=== PATIENT | female | born 1960 | race Caucasian/White ===

== ENCOUNTER 2017-10-05 20:25 | Inpatient (IN) | payer OTHER ==
[~2017-10-05] VITALS: Ht 167.6 cm; Wt 85.6 kg
[2017-10-05] MEDS ORDERED: LISI-167 PO (20:54)
[2017-10-05] MEDS ORDERED: ASPIRIN 81 MG TABLET CHEW PO ONE (21:00)
[2017-10-05] MEDS ORDERED: SODIUM CHLORIDE FLUSH 10ML SYR IVF ONE (21:00)
[2017-10-05] MEDS ORDERED: NITROGLYCERIN SINGLE TAB 0.4 MG SL PRN (21:00)
[2017-10-05] MEDS ORDERED: NITROGLYCERIN SINGLE TAB 0.4 MG SL ONE (21:02)
[2017-10-05] MEDS ORDERED: ASPIRIN 81 MG TABLET CHEW ONE (21:02)
[2017-10-05 21:17] LABS: BASOPHILS # (AUTO) 0.03 x10^3/uL (0-0.1); BASOPHILS % (AUTO) 0 % (0-1); EOSINOPHILS # (AUTO) 0.17 x10^3/uL (0-0.4); EOSINOPHILS % (AUTO) 2 % (1-7); LYMPHOCYTES # (AUTO) 3.76 x10^3/uL (1-3.4); LYMPHOCYTES % (AUTO) 36 % (22-44); MD NO; MEAN CORPUSCULAR HEMOGLOBIN 31.9 pg (27.0-34.8); MEAN CORPUSCULAR VOLUME 93.8 fL (80-100); MEAN PLATELET VOLUME 8.7 fL (7.4-10.4); MONOCYTES # (AUTO) 0.61 x10^3/uL (0.2-0.8); MONOCYTES % (AUTO) 6 % (2-9); NEUTROPHILS # (AUTO) 5.84 x10^3/uL (1.8-6.8); NEUTROPHILS % (AUTO) 56 % (42-75); PLATELET COUNT 238 x10^3/uL (130-400); RED BLOOD COUNT 4.67 x10^6/uL (3.82-5.3); RED CELL DISTRIBUTION WIDTH 14.3 % (9.6-15.2)
[2017-10-05 21:28] LABS: ALBUMIN 3.4 g/dL (3.4-5.0); ANION GAP 8 mmol/L (5-15); CALCIUM 8.7 mg/dL (8.5-10.1); CHLORIDE 112 mmol/L (98-107); CREATININE 1.05 mg/dL (0.55-1.02)
[2017-10-05 21:32] LABS: TROPONIN I < 0.015 ng/mL (0.000-0.045)
[2017-10-05] MEDS ORDERED: SODIUM CHLORIDE 0.9% 1,000 ML IV SCH (22:37)
[2017-10-05 22:42] VITALS: BP 147/99
[2017-10-05] MEDS ORDERED: POLYETHYLENE GLYCOL 17 GM PACKET PO PRN (23:00)
[2017-10-05] MEDS ORDERED: hydrALAzine 20 MG/ML, 1ML IVPush PRN (23:00)
[2017-10-05] MEDS ORDERED: GUAIFENESIN/DM 200-20MG, 10ML UDC PO PRN (23:00)
[2017-10-05] MEDS ORDERED: TRAZODONE 50MG TABLET PO PRN (23:00)
[2017-10-06] VITALS (10 sets, daily range): BP systolic 120–180; BP diastolic 78–114
[2017-10-06 05:00] LABS: CHOL/HDL RATIO 5.6; CHOLESTEROL, TOTAL 206 mg/dL (140-239); HDL CHOL % 18 % (28-40); HDL CHOLESTEROL (DIRECT) 37 mg/dL (40-60); LDL CHOLESTEROL,CALCULATED 129 mg/dL (54-169); LDL/HDL RATIO 3.5 (0.5-3.0); TRIGLYCERIDES 201 mg/dL (50-200); TROPONIN I < 0.015 ng/mL (0.000-0.045); VLDL CHOLESTEROL 40 mg/dL (0-25)
[2017-10-06] MEDS ORDERED: KETOROLAC 30 MG/1 ML IVPush ONE (08:00)
[2017-10-06 08:11] LABS: HEMOGLOBIN A1C 5.5 % (4.2-6.3)
[2017-10-06 08:25] LABS: ALANINE AMINOTRANSFERASE 51 U/L (12-78); ALKALINE PHOSPHATASE 81 U/L (45-117); BILIRUBIN,TOTAL 0.4 mg/dL (0.2-1.0); TOTAL PROTEIN 6.3 g/dL (6.4-8.2)
[2017-10-06 08:40] LABS: BILIRUBIN, DIRECT < 0.1 mg/dL (0.1-0.2); BILIRUBIN,INDIRECT 0.3 mg/dL (0.0-2.0)
[2017-10-06] MEDS ORDERED: LISI-170 PO (08:41)
[2017-10-06] MEDS ORDERED: REGADENOSON 0.4 MG/5 ML SYRINGE ONE (08:53)
[2017-10-06] MEDS ORDERED: LISINOPRIL 10 MG TABLET PO SCH (09:00)
[2017-10-06] MEDS: morphine SULFATE 10 MG/ML, 1ML IVPush PRN ×2 (10:39→10:46)
[2017-10-06] MEDS ORDERED: NITROGLYCERIN 0.4 MG/SPRAY SL PRN (11:00)
[2017-10-06] MEDS: LISINOPRIL 10 MG TABLET PO ONE ×2 (12:13→15:08)
[2017-10-06] MEDS: ONDANSETRON 2MG/ML, 2ML IVPush PRN ×2 (12:27→19:41)
[2017-10-06] MEDS ORDERED: MAALOX/HYOSCYAMINE/LIDOCAINE 45 ML BTL PO ONE (15:30)
[2017-10-06] MEDS ORDERED: ENALAPRILAT 1.25 MG/ML, 2ML IV PRN (16:00)
[2017-10-06] MEDS ORDERED: MAALOX/HYOSCYAMINE/LIDOCAINE 45 ML BTL PO PRN (16:30)
[2017-10-06] MEDS: FAMOTIDINE 20 MG TABLET PO SCH (19:41)
[2017-10-06 21:28] LABS: MICROSCOPIC INDICATED
[2017-10-06] MEDS: ACETAMINOPHEN 325 MG TABLET PO PRN (21:42)
[2017-10-06 21:47] LABS: CULTURE INDICATED? NO
[2017-10-07 00:41] VITALS: BP 145/92
[2017-10-07] MEDS: ACETAMINOPHEN 325 MG TABLET PO PRN ×2 (02:12→17:14)
[2017-10-07 05:26] LABS: BASOPHILS # (AUTO) 0.05 x10^3/uL (0-0.1); BASOPHILS % (AUTO) 0 % (0-1); EOSINOPHILS % (AUTO) 1 % (1-7); LYMPHOCYTES # (AUTO) 3.69 x10^3/uL (1-3.4); LYMPHOCYTES % (AUTO) 31 % (22-44); MD NO; MEAN CORPUSCULAR HEMOGLOBIN 31.4 pg (27.0-34.8); MEAN CORPUSCULAR HGB CONC 33.6 g/dL (32.4-35.8); MEAN CORPUSCULAR VOLUME 93.5 fL (80-100); MEAN PLATELET VOLUME 8.9 fL (7.4-10.4); MONOCYTES # (AUTO) 0.86 x10^3/uL (0.2-0.8); MONOCYTES % (AUTO) 7 % (2-9); NEUTROPHILS # (AUTO) 7.16 x10^3/uL (1.8-6.8); NEUTROPHILS % (AUTO) 60 % (42-75); PLATELET COUNT 230 x10^3/uL (130-400); RED BLOOD COUNT 4.73 x10^6/uL (3.82-5.3); RED CELL DISTRIBUTION WIDTH 14.1 % (9.6-15.2)
[2017-10-07 05:37] LABS: ALBUMIN 3.1 g/dL (3.4-5.0); ANION GAP 7 mmol/L (5-15); CALCIUM 8.5 mg/dL (8.5-10.1); CHLORIDE 111 mmol/L (98-107)
[2017-10-07 05:40] LABS: ALANINE AMINOTRANSFERASE 54 U/L (12-78); ALKALINE PHOSPHATASE 68 U/L (45-117); BILIRUBIN,TOTAL 0.6 mg/dL (0.2-1.0); CREATININE 0.67 mg/dL (0.55-1.02); TOTAL PROTEIN 6.5 g/dL (6.4-8.2)
[2017-10-07 06:45] VITALS: BP 139/85
[2017-10-07] MEDS ORDERED: ATOR20TA9 PO (09:04)
[2017-10-07] MEDS: FAMOTIDINE 20 MG TABLET PO SCH ×3 (09:26→20:28)
[2017-10-07] MEDS: LISINOPRIL 20 MG TABLET PO SCH ×2 (09:28→09:52)
[2017-10-07 12:30] VITALS: BP 139/85
[2017-10-07 15:43] VITALS: BP 150/95
[2017-10-07 17:10] VITALS: BP 149/99
[2017-10-07 20:03] VITALS: BP 161/92
[2017-10-07] MEDS ORDERED: ONDANSETRON 4 MG TABLET ONE (20:40)
[2017-10-07] MEDS: ONDANSETRON 2MG/ML, 2ML IVPush PRN (20:43)
[2017-10-07] MEDS ORDERED: ATORVASTATIN 20 MG TABLET PO SCH (21:00)
[2017-10-08 01:25] VITALS: BP 131/74
[2017-10-08 07:22] VITALS: BP 157/87
[2017-10-08] MEDS: FAMOTIDINE 20 MG TABLET PO SCH (09:00)
[2017-10-08] MEDS: LISINOPRIL 20 MG TABLET PO SCH (09:00)
[2017-10-08] MEDS ORDERED: SINCALIDE (KINEVAC) 5 MCG ONE (11:44)
[2017-10-08 12:54] VITALS: BP 158/90
== END 2017-10-08 15:53 | disposition home or self-care (01) | DRG 446 ==
LOC: ED 21:36 → EDIP 22:02 → 5SO 22:38 → 3NE 10-07 15:24
PROVIDERS: ADMIT Hospitalist; ATTEND Hospitalist
DX: K80.20 Calculus of gallbladder without cholecystitis without obstruction (principal); I10 Essential (primary) hypertension; R07.2 Precordial pain; G89.29 Other chronic pain; F17.210 Nicotine dependence, cigarettes, uncomplicated; E78.5 Hyperlipidemia, unspecified; M35.00 Sjogren syndrome, unspecified; K90.0 Celiac disease; K76.0 Fatty (change of) liver, not elsewhere classified; E74.39 Other disorders of intestinal carbohydrate absorption; R73.9 Hyperglycemia, unspecified; D72.829 Elevated white blood cell count, unspecified; R07.89 Other chest pain; M54.5 Low back pain; Z79.82 Long term (current) use of aspirin; Z82.49 Family history of ischemic heart disease and other diseases of the circulatory system; Z85.42 Personal history of malignant neoplasm of other parts of uterus
CPT/HCPCS: 0399T; 36415; 71045; 76700; 78227; 78452; 80048; 80053; 80061; 80076; 81001; 82040; 83036; 84484; 85025; 85379; 93005; 93017; 93306; 99285; J1885; J2405; J2785; A9502; A9537; C9898; J2270; J2805; J7030

== ENCOUNTER 2017-10-13 08:03 | Day surgery (SDC) | payer OTHER ==
[~2017-10-13] VITALS: Ht 160 cm; Wt 82.4 kg
[~2017-10-13 08:03] MED LIST: ATOR20TA9 PO; BUPIVACAINE/PF-EPI 0.5% 1:200K ONE; LISI-167 PO; LISI-170 PO
[2017-10-13] MEDS ORDERED: LACTATED RINGERS 1,000 ML IV SCH (08:31)
[2017-10-13] MEDS ORDERED: ATOR20TA9 PO (08:38)
[2017-10-13] MEDS ORDERED: OMEP-110 PO (08:38)
[2017-10-13 08:46] VITALS: BP 159/83
[2017-10-13 08:51] VITALS: BP 159/83
[2017-10-13] MEDS ORDERED: MIDAZOLAM 1 MG/ML, 2ML ONE (08:52)
[2017-10-13] MEDS ORDERED: FENTANYL PF 250 MCG/5ML ONE (08:52)
[2017-10-13] MEDS ORDERED: PLEASE ENTER HEIGHT AND WEIGHT MC SCH (09:00)
[2017-10-13] MEDS ORDERED: LIDOCAINE-MPF 1%, 2ML INFIL ONE (09:00)
[2017-10-13] MEDS ORDERED: DEXAMETHASONE 4 MG/ML, 1ML ONE (09:28)
[2017-10-13] MEDS ORDERED: GLYCOPYRROLATE 0.2MG/1ML, 5ML ONE (09:28)
[2017-10-13] MEDS ORDERED: OXYcodone IR 5MG TABLET PO ONE (09:30)
[2017-10-13] MEDS ORDERED: ACETAMINOPHEN 500 MG TABLET PO ONE (09:30)
[2017-10-13] MEDS ORDERED: FAMOTIDINE 20 MG TABLET PO ONE (09:30)
[2017-10-13] MEDS ORDERED: PROPOFOL 10 MG/ML, 20ML ONE (09:55)
[2017-10-13] MEDS ORDERED: ONDANSETRON 2MG/ML, 2ML ONE (09:55)
[2017-10-13] MEDS ORDERED: CEFAZOLIN 1,000 MG ONE ×2 (09:55)
[2017-10-13] MEDS ORDERED: LABETALOL 5MG/ML, 20ML ONE ×2 (09:55→09:56)
[2017-10-13] MEDS ORDERED: KETOROLAC 30 MG/1 ML ONE (09:55)
[2017-10-13] MEDS ORDERED: GLYCOPYRROLATE 0.4 MG/2 ML, 2ML ONE (09:56)
[2017-10-13] MEDS ORDERED: NEOSTIGMINE 1 MG/ML, 10ML ONE (09:56)
[2017-10-13] MEDS ORDERED: SUCCINYLCHOLINE 20 MG/ML, 10ML ONE (09:56)
[2017-10-13] MEDS ORDERED: ROCURONIUM 10MG/ML,5ML ONE (09:56)
[2017-10-13] MEDS ORDERED: PROMETHAZINE 25 MG/ML, 1ML IV PRN (10:00)
[2017-10-13] MEDS ORDERED: OXYcodone 5 MG/5 ML ORAL.SOL UDC PO PRN (10:00)
[2017-10-13] MEDS ORDERED: FENTANYL PF 100 MCG/2ML IV PRN (10:00)
[2017-10-13] MEDS ORDERED: KETOROLAC 30 MG/1 ML IV PRN (10:00)
[2017-10-13] MEDS ORDERED: hydrALAzine 20 MG/ML, 1ML ONE (10:46)
[2017-10-13] MEDS ORDERED: hydrALAzine 20 MG/ML, 1ML IV ONE (11:00)
[2017-10-13] MEDS ORDERED: ONDANSETRON 2MG/ML, 2ML IVPush PRN (12:00)
[2017-10-13] MEDS ORDERED: HYDROcodone/APAP 5/325 TABLET PO PRN (12:00)
[2017-10-13] MEDS ORDERED: HYDROcodone/APAP 5/325 TABLET ONE (12:12)
== END 2017-10-13 17:03 | disposition home or self-care (01) ==
LOC: OUT 08:03
PROVIDERS: ATTEND Surgery
DX: K80.12 Calculus of gallbladder with acute and chronic cholecystitis without obstruction (principal); E66.9 Obesity, unspecified; I10 Essential (primary) hypertension; E78.5 Hyperlipidemia, unspecified; F17.210 Nicotine dependence, cigarettes, uncomplicated; Z90.710 Acquired absence of both cervix and uterus; Z98.890 Other specified postprocedural states
CPT/HCPCS: 47562; 88304; J0330; J0360; J0690; J1100; J1885; J2405; J2704; J2710; J3010; J3490; J7120; J2250